=== PATIENT | female | born 1990 | race Caucasian/White ===

== ENCOUNTER 2016-12-22 09:30 | Emergency (ER) | payer OTHER ==
[~2016-12-22] VITALS: Ht 162.6 cm; Wt 72.6 kg
--- NOTE | ~2016-12-22 | EKG ---
[address] [place] [address] ELECTROCARDIOGRAM REPORT Name: MAX VILLASENOR Room [facility]: [facility] [id number] Admission: 12/22/16 Attend Phys: Discharge: 12/22/16 Date of : [birth year] Report #: [id number] THIS REPORT FOR: //name// [facility] ED Test Date: 2016-12-22 Test Time: 10:15:16 Pat Name: MAX VILLASENOR Department: Room: Gender: F Clinical Lab Specialist: NEGRITO : 1990 Requested By: Dino Miles Order Number: [id number] MD: Rakesh Beckford Measurements Intervals [place] Rate: 67 P: 34 IN: 146 QRS: 80 QRSD: 81 T: 56 QT: 377 QTc: 398 Interpretive Statements Sinus rhythm Normal tracing No previous ECG available for comparison Electronically Signed On 12-24-2016 7:06:23 CDT by Rakesh Beckford [email or web address] <ELECTRONICALLY SIGNED> By: Rakesh Beckford MD, [facility] 12/24/16 [id number] Rakesh Beckford MD, FACC /EPI
[~2016-12-22 09:30] MED LIST: KEFLEX500 MG PO; LEVOTHYROXINE0.05 MG PO; TRINATE TABLET1 TAB PO
[2016-12-22 09:49] LABS: ABSOLUTE NEUTROPHILS 5.9 thou/uL (1.4-8.2); BASOPHILS 0.4 % (0.0-2.0); EOSINOPHILS 2.1 % (0.0-3.0); HEMATOCRIT 35.2 % (37.0-47.0); LYMPHOCYTES 18.3 % (24.0-44.0); MCH 30.6 pg (26.0-34.0); MCHC 34.2 g/dL (28.0-37.0); MCV 89.7 fL (80.0-100.0); MONOCYTES 5.2 % (1.0-8.0); PLATELET COUNT 222 thou/uL (150-400); RBC 3.92 mil/uL (4.20-5.00); RDW 13.6 % (10.5-14.5)
[2016-12-22 09:57] LABS: ANION GAP 9 mmol/L (7-16); BUN 12 mg/dL (7-18); CALCIUM 8.8 mg/dL (8.5-10.1); CHLORIDE 106 mmol/L (98-107); CO2 23 mmol/L (21-32); CREATININE 0.6 mg/dL (0.6-1.0); GLUCOSE 142 mg/dL (74-106); MANUAL DIFF NO; POTASSIUM 3.2 mmol/L (3.5-5.1); SODIUM 138 mmol/L (136-145)
[2016-12-22 10:05] LABS: TROPONIN-I < 0.04 ng/mL (<0.04-0.07)
[2016-12-22] MEDS ORDERED: FLAGYL 250 MG250 MG PO (11:37)
[2016-12-22 13:52] VITALS: BP 110/62
== END 2016-12-22 13:54 | disposition home or self-care (01) ==
LOC: ER 09:30
PROVIDERS: Nurse Practitioner
DX: O26.899 Other specified pregnancy related conditions, unspecified trimester (principal); E16.2 Hypoglycemia, unspecified; E06.3 Autoimmune thyroiditis; Z91.040 Latex allergy status; Z3A.00 Weeks of gestation of pregnancy not specified